=== PATIENT | male | born 1935 | race Caucasian/White ===

== ENCOUNTER 2017-07-17 14:15 | Observation (INO) | payer OTHER ==
[~2017-07-17] VITALS: Ht 175.3 cm; Wt 79.9 kg
[2017-07-17 15:09] LABS: HEMATOCRIT 46.8 % (38.0-50.0); MCHC 33.1 G/DL (30.0-36.0); MCV 84.5 FL (86-99); PLATELET COUNT 211 K/uL (156-360); RBC DIS.WIDTH-SD 39.5 % (39-53); RED BLOOD COUNT 5.54 M/uL (4.00-5.50); WHITE BLOOD COUNT 10.2 K/uL (4.1-10.2)
[2017-07-17 15:20] LABS: CHLORIDE 101 mEq/L (99-109); POTASSIUM 4.9 mEq/L (3.7-5.4); SODIUM 135 mEq/L (136-147)
[2017-07-17 15:22] LABS: GLUCOSE 211 mg/dL (70-99)
[2017-07-17 15:24] LABS: ANION GAP 11 MEQ/L (2-14); TOTAL BILIRUBIN 0.5 mg/dL (0.0-1.0)
[2017-07-17 15:26] LABS: ALKALINE PHOSPHATASE 104 IU/L (3-129); GFR ESTIMATE (CALCULATED) > 59 mL/min/
[2017-07-17 15:27] LABS: UREA NITROGEN (BUN) 21 mg/dL (9-23)
[2017-07-17 15:31] LABS: TROP-I INTERPRETATION NEGATIVE; TROPONIN-I 0.02 ng/mL (0.0-0.30)
[2017-07-17] MEDS ORDERED: LEVEMIR FL100 UNIT/1 SC (17:31)
[2017-07-17] MEDS ORDERED: DONEPEZIL HCL10 MG PO (17:32)
[2017-07-17] MEDS ORDERED: DULOXETINE HCL60 MG PO (17:32)
[2017-07-17] MEDS ORDERED: METFORMIN HCL1000 MG PO (17:33)
[2017-07-17] MEDS ORDERED: ATORVASTATIN CA40 MG PO (17:34)
[2017-07-17] MEDS ORDERED: GLIMEPIRIDE2 MG PO (17:34)
[2017-07-17] MEDS ORDERED: ERGOCALCIF50000 UNIT PO (17:35)
[2017-07-17] MEDS ORDERED: LISINOPRIL2.5 MG PO (17:37)
[2017-07-17] MEDS ORDERED: FINASTERIDE5 MG PO (17:38)
[2017-07-17] MEDS ORDERED: ANTIVERT12.5 MG PO (17:38)
[2017-07-17] MEDS ORDERED: ASPIR-LOW81 MG PO (17:39)
[2017-07-17] MEDS ORDERED: TRAMADOL HCL50 MG PO (17:39)
[2017-07-17] MEDS ORDERED: CYANOCOBALAM1000 MCG PO (17:40)
[2017-07-17 17:51] VITALS: BP 134/68
[2017-07-17 17:53] VITALS: BP 170/68
[2017-07-17 20:34] LABS: POINT-OF-CARE METER ID UU13113700
[2017-07-17 21:07] LABS: TROP-I INTERPRETATION NEGATIVE; TROPONIN-I 0.02 ng/mL (0.0-0.30)
[2017-07-17 21:12] LABS: Estimated Average Glucose 237 mg/dL (70-123); HEMOGLOBIN A1c (GLYCOHEMOGLOB) 9.9 % HGB (Below 5.7)
[2017-07-18] VITALS (7 sets, daily range): BP systolic 103–125; BP diastolic 50–84
[2017-07-18 03:44] LABS: TROP-I INTERPRETATION NEGATIVE; TROPONIN-I 0.02 ng/mL (0.0-0.30)
[2017-07-18 04:05] LABS: HDL CHOLESTEROL 31 MG/DL (Desirable>=40); LDL CHOLESTEROL 61 mg/dL (Desirable<100); NON-HDL CHOLESTEROL 99 mg/dL (Desirable<160); TOTAL CHOLESTEROL 130 mg/dL (Desirable<200); TRIGLYCERIDES 192 MG/DL (Normal: <150)
[2017-07-18 06:53] LABS: ANION GAP 15 MEQ/L (2-14); CHLORIDE 100 MEQ/L (99-109); MAGNESIUM 1.8 mg/dl (1.3-2.7); POTASSIUM 4.5 MEQ/L (3.7-5.4); SODIUM 134 MEQ/L (136-147)
[2017-07-18 06:59] LABS: GFR ESTIMATE (CALCULATED) 56 mL/min/; GLUCOSE 200 mg/dL (70-99); UREA NITROGEN (BUN) 25 mg/dL (9-23)
[2017-07-18 08:27] LABS: POINT-OF-CARE METER ID UU13113700
[2017-07-18 09:13] LABS: HEMATOCRIT 46.1 % (38.0-50.0); MCH 27.4 PG (29.0-34.0); MCHC 32.5 G/DL (30.0-36.0); MCV 84.3 FL (86-99); MEAN PLAT.VOLUME 10.2 uM^3 (9.0-12.4); PLATELET COUNT 225 K/uL (156-360); RBC DIS.WIDTH-CV 12.9 % (11.8-14.6); RBC DIS.WIDTH-SD 39.6 % (39-53); RED BLOOD COUNT 5.47 M/uL (4.00-5.50)
[2017-07-18 09:38] LABS: ANION GAP 11 MEQ/L (2-14); CHLORIDE 101 MEQ/L (99-109); GFR ESTIMATE (CALCULATED) > 59 mL/min/; GLUCOSE 192 mg/dL (70-99); POTASSIUM 4.6 MEQ/L (3.7-5.4); SAMPLE HEMOLYSIS CHECK 0; SAMPLE ICTERIC CHECK 0; SAMPLE LIPEMIA CHECK 0; SODIUM 136 MEQ/L (136-147); UREA NITROGEN (BUN) 24 mg/dL (9-23)
[2017-07-18 12:15] LABS: POINT-OF-CARE METER ID UU13113700
[2017-07-18 12:51] LABS: TROP-I INTERPRETATION NEGATIVE; TROPONIN-I 0.02 ng/mL (0.0-0.30)
[2017-07-18 17:26] LABS: POINT-OF-CARE METER ID UU13113700
[2017-07-19 04:00] VITALS: BP 121/66
[2017-07-19 05:36] LABS: HEMATOCRIT 45.1 % (38.0-50.0); MCH 27.8 PG (29.0-34.0); MCHC 32.8 G/DL (30.0-36.0); MCV 84.8 FL (86-99); MEAN PLAT.VOLUME 10.2 uM^3 (9.0-12.4); PLATELET COUNT 225 K/uL (156-360); RBC DIS.WIDTH-CV 13.2 % (11.8-14.6); RBC DIS.WIDTH-SD 40.2 % (39-53); RED BLOOD COUNT 5.32 M/uL (4.00-5.50); WHITE BLOOD COUNT 12.2 K/uL (4.1-10.2)
[2017-07-19 05:59] LABS: ANION GAP 9 MEQ/L (2-14); CHLORIDE 101 MEQ/L (99-109); GFR ESTIMATE (CALCULATED) > 59 mL/min/; GLUCOSE 122 mg/dL (70-99); POTASSIUM 4.3 MEQ/L (3.7-5.4); SAMPLE HEMOLYSIS CHECK 0; SAMPLE ICTERIC CHECK 0; SAMPLE LIPEMIA CHECK 0; SODIUM 137 MEQ/L (136-147); UREA NITROGEN (BUN) 23 mg/dL (9-23)
[2017-07-19 07:45] VITALS: BP 124/64
[2017-07-19 12:00] VITALS: BP 133/61
[2017-07-19 12:16] LABS: POINT-OF-CARE METER ID UU13113831
[2017-07-20] MEDS ORDERED: IMDUR30 MG PO (15:48)
[2017-07-20] MEDS ORDERED: NITROSTAT0.3 MG SL (15:49)
[2017-07-22 16:32] LABS: POINT-OF-CARE METER ID UU13113831
== END 2017-07-19 15:38 | disposition home or self-care (01) ==
LOC: EME 14:15 → 5WEST 16:08 → EDOF 16:08 → ENRESERV 16:10 → 5WEST 17:50
PROVIDERS: Internal Medicine; Internal Medicine Cardiovascular Disease; Nurse Practitioner Family; Physician Assistant Medical
DX: R07.89 Other chest pain (principal); R94.31 Abnormal electrocardiogram [ECG] [EKG]; I10 Essential (primary) hypertension; E11.9 Type 2 diabetes mellitus without complications; I47.1 Supraventricular tachycardia; R91.8 Other nonspecific abnormal finding of lung field; D72.829 Elevated white blood cell count, unspecified; R42 Dizziness and giddiness; N40.0 Benign prostatic hyperplasia without lower urinary tract symptoms; F32.9 Major depressive disorder, single episode, unspecified; Z87.891 Personal history of nicotine dependence; E78.00 Pure hypercholesterolemia, unspecified; F03.90 Unspecified dementia, unspecified severity, without behavioral disturbance, psychotic disturbance, mood disturbance, and anxiety; Z79.4 Long term (current) use of insulin; Z79.82 Long term (current) use of aspirin
CPT/HCPCS: 71020; 78452; 80048; 80048 91; 80053; 80061; 82948; 83036; 83735; 84484; 85027; 85048; 93005; 93017; 93306; 94799; 99281; 99284; A9500; G0378; J1650; J1815; J2785

== ENCOUNTER 2017-08-14 10:00 | Day surgery (SDC) | payer OTHER ==
[~2017-08-14] VITALS: Ht 175.3 cm; Wt 76.2 kg
[~2017-08-14 10:00] MED LIST: ANTIVERT12.5 MG PO; ASPIR-LOW81 MG PO; ATORVASTATIN CA40 MG PO; CYANOCOBALAM1000 MCG PO; DONEPEZIL HCL10 MG PO; DULOXETINE HCL60 MG PO; ERGOCALCIF50000 UNIT PO; FINASTERIDE5 MG PO; GLIMEPIRIDE2 MG PO; IMDUR30 MG PO; ISOSORBIDE MONO60 MG PO; LEVEMIR FL100 UNIT/1 SC; LISINOPRIL2.5 MG PO; METFORMIN HCL1000 MG PO; METOPROLOL SUCC25 MG PO; NITROSTAT0.3 MG SL; OMEPRAZOLE20 MG PO; TRAMADOL HCL50 MG PO
[2017-08-14 10:44] LABS: POINT-OF-CARE METER ID UU13113696; POINT-OF-CARE USER ID HMLCJM07
[2017-08-14 13:51] LABS: POINT-OF-CARE METER ID UU13113819
[2017-08-14 16:00] VITALS: BP 132/61
[2017-08-14 16:30] LABS: POINT-OF-CARE METER ID UU13113781
[2017-08-14 20:00] VITALS: BP 147/65
[2017-08-14 20:58] LABS: POINT-OF-CARE METER ID UU14314088
[2017-08-14 23:55] VITALS: BP 178/84
[2017-08-15 04:00] VITALS: BP 146/69
[2017-08-15 04:48] LABS: BASOPHIL COUNT 0.1 K/uL (0-0.1); EOSINOPHIL (%) 1.7 % (0-5); EOSINOPHIL COUNT 0.2 K/uL (0-0.3); HEMATOCRIT 43.9 % (38.0-50.0); IMMATURE GRANULOCYTE (%) 0.5 % (0.0-0.7); IMMATURE GRANULOCYTE COUNT 0.1 K/uL; INSTRUMENT ABS NEUTROPHIL CT 4.5 K/uL; LYMPHOCYTE COUNT 3.6 K/uL (1.0-2.8); MCH 27.5 PG (29.0-34.0); MCHC 32.1 G/DL (30.0-36.0); MCV 85.7 FL (86-99); MEAN PLAT.VOLUME 10.3 uM^3 (9.0-12.4); MONOCYTE (%) 11.4 % (3-12); MONOCYTE COUNT 1.1 K/uL (0-0.8); NEUTROPHIL (%) 47.8 % (45-76); NEUTROPHIL COUNT 4.5 K/uL (1.8-6.4); PLATELET COUNT 177 K/uL (156-360); RBC DIS.WIDTH-CV 13.1 % (11.8-14.6); RBC DIS.WIDTH-SD 40.7 % (39-53); RED BLOOD COUNT 5.12 M/uL (4.00-5.50); WHITE BLOOD COUNT 9.4 K/uL (4.1-10.2)
[2017-08-15 05:06] LABS: CHLORIDE 110 mEq/L (99-109); POTASSIUM 4.4 mEq/L (3.7-5.4); SODIUM 139 mEq/L (136-147)
[2017-08-15 05:08] LABS: GLUCOSE 88 mg/dL (70-99)
[2017-08-15 05:10] LABS: ANION GAP 7 MEQ/L (2-14)
[2017-08-15 05:12] LABS: GFR ESTIMATE (CALCULATED) > 59 mL/min/
[2017-08-15 05:13] LABS: UREA NITROGEN (BUN) 17 mg/dL (9-23)
[2017-08-15 07:18] VITALS: BP 168/72
[2017-08-15 07:38] LABS: POINT-OF-CARE METER ID UU14314088
[2017-08-15 11:10] LABS: POINT-OF-CARE METER ID UU13113698
[2017-08-15 11:34] VITALS: BP 133/61
[2017-08-15] MEDS ORDERED: CLOPIDOGREL75 MG PO (12:28)
== END 2017-08-15 13:25 | disposition home or self-care (01) ==
LOC: CATH 10:00 → 2SOUTH 13:21 → 4EAST 13:21 → ENRESERV 13:28 → 4EAST 15:55
PROVIDERS: Internal Medicine Cardiovascular Disease
DX: I25.10 Atherosclerotic heart disease of native coronary artery without angina pectoris (principal); E11.9 Type 2 diabetes mellitus without complications; E78.00 Pure hypercholesterolemia, unspecified; I10 Essential (primary) hypertension; Z79.82 Long term (current) use of aspirin; Z79.84 Long term (current) use of oral hypoglycemic drugs
CPT/HCPCS: 80048; 82948; 85025; 85347; 93005; C1725; C1769; C1887; G0378; J0461; J1644; J1815; J2250; J2405; J3010; J3246; J7030